=== PATIENT | female | born 1975 | race American Indian/Alaskan Native ===

== ENCOUNTER 2024-10-08 11:44 | Emergency (ER) | payer OTHER, SELFPAY ==
--- NOTE | 2024-10-08 12:33 | ED.GENMED ---
History of Present Illness
<Ranjana Salcedo, GEOSPATIAL TECHNOLOGIST - Last Filed: 10/09/24 14:46>
General
Chief Complaint: Abdominal Pain
Source: patient
Exam Limitations: none
Time Seen by Provider: 10/08/24 12:33
Nursing documentation reviewed up to this point in time: agreed with
History of Present Illness
History of Present Illness:
49-year-old female with history of thyroidism, depression, chronic back pain, IBS, chronic intermittent episodes of abdominal bloating, pain and constipation most likely related to IBS�see, usually does well with MiraLAX and probiotics as needed.
He was ruled out for celiac disease and also saw a painter tumbling barrel and was ruled out for connective tissue disease.
Presents today for 4 days of intermittent pain under left breast. Went to UC, EKG normal.
Also 3 had abd. film showing increased stool. Went home and took Miralax, Senekot, Mg++ and had good BM last night and this a.m.
This a.m. went back to urgent care for bloating and abd pain and sent here for eval.
. Denies fever or chills. Denies nausea or vomiting. She states she is urinating more than usual throughout the night.
Past History
<Ranjana Salcedo, GEOSPATIAL TECHNOLOGIST - Last Filed: 10/09/24 14:46>
Past History
ED Past Medical History: Hypothyroidism, Psychiatric (Depression), Other and Other
ED Past Surgical History: None
Social History
Tobacco: Non-smoker
Alcohol: None
Personal: Single
Living: alone
Employment: Employed (teacher at [employer])
Review of Systems
<Ranjana Salcedo, GEOSPATIAL TECHNOLOGIST - Last Filed: 10/09/24 14:46>
Review of Systems
Allergies reviewed?: Yes
All Other Systems: ROS reviewed and negative except as documented in HPI and ROS
Constitutional: Denies fever
Respiratory: Denies trouble breathing
Cardiac: Reports chest pain (pain rib under left breast)
ABD/GI: Reports abdominal pain and constipated; Denies nausea, vomiting, diarrhea, bloody stools or black stools
: Reports frequency; Denies dysuria, difficulty voiding or urgency
Musculoskeletal: Reports no symptoms
Skin: Reports no symptoms
Neurological: Reports no symptoms
Phy Exam
<Ranjana Salcedo, GEOSPATIAL TECHNOLOGIST - Last Filed: 10/09/24 14:46>
Physical Exam
Physical Exam:
GENERAL: No acute distress. A&Ox3.
CONSTITUTIONAL: Afebrile.
EYES: clear, conjunctivae normal
ENMT: moist mucus membranes, Pharynx nl
RESPIRATORY: Regular respirations, nonlabored, lungs clear.
CARDIOVASCULAR: Regular rate and rhythm, no murmurs, no rubs.
GI: Soft, nondistended, tender to palpate left abdomen. Normal BS
MUSCULOSKELETAL: Point tender intercostal space between ribs 4 and 5 anteriorly. One finger pressing on this area immediately reproduces the pain. Moves with ease. Well perfused.
SKIN: Warm, dry, normal
PSYCH: Normal mood and affect. Well kept, interactive and appropriate
NEUROLOGIC: Awake, alert and oriented. No focal neurological deficits
Course
<Ranjana Salcedo, GEOSPATIAL TECHNOLOGIST - Last Filed: 10/09/24 14:46>
Orders/Labs/Results
Orders:
Orders
10/08/24 11:57
EKG [Electrocardiogram (*1)] Urgent
Reason for Study: Abdominal Pain
EKG- Treatment ONCE
10/08/24 12:50
CT Abd/pel W Iv And Oral Contr Urgent
Comment:
Reason For Exam: left side abd pain
Iohexol [Omnipaque] See Protocol PO NOW STA
CR Chest - 2 Views Urgent
Comment:
Reason For Exam: left anterior mid rib pain
10/08/24 13:08
Complete Blood Count/With Diff Urgent
Comprehensive Metabolic Panel Urgent
HCG, Serum Qualitative Screen Urgent
Comment: ADD ON
Urinalysis Reflex To Culture Urgent
Date Specimen was Collected: 10/08/24
Time Specimen was Collected: 13:01
Urine Microscopic Reflex Cult Urgent
Urine Culture Urgent
JOHN Source: U
Specimen Description:
Date Specimen was Collected: 10/08/24
Time Specimen was Collected: 13:01
10/08/24 13:55
Add On- LAB Urgent
Comments:: tube in lab
Tests Added?: serum HCG quantitative
Test Result ONCE
10/08/24 15:23
Add On- LAB Urgent
Tests Added?: Urine culture
Abnormal Lab Results
10/08/24
13:08
RBC 3.90 L 10^6/uL
(4.20-5.40)
Hct 35.8 L %
(37.0-47.0)
MCH 32.6 H pg
(27.0-31.0)
Absolute Monos (auto) 0.7 H 10^3/uL
(0.1-0.6)
Sodium 134 L mmol/L
(135-145)
Leukocyte Esterase Rfl 1+ A
(Negative)
Urine WBC (Reflex) 11-15 A /HPF
(0-5)
Urine Bacteria (Reflex) Few A
(Negative)
10/08/24 13:08
10/08/24 13:08
Vital Signs
Initial and Last Documented VS:
Initial Vital Signs
Temp Pulse Resp Pulse Ox
97.6 F 65 18 100
10/08/24 11:51 10/08/24 11:51 10/08/24 11:51 10/08/24 11:51
Last Documented Vital Signs
Temp Pulse Resp BP Pulse Ox
97.6 F 60 14 134/76 100
10/08/24 11:51 10/08/24 17:16 10/08/24 17:16 10/08/24 17:16 10/08/24 17:16
<Sharan Carlson PA-C - Last Filed: 10/08/24 17:35>
Orders/Labs/Results
Orders:
Orders
10/08/24 11:57
EKG [Electrocardiogram (*1)] Urgent
Reason for Study: Abdominal Pain
EKG- Treatment ONCE
10/08/24 12:50
CT Abd/pel W Iv And Oral Contr Urgent
Comment:
Reason For Exam: left side abd pain
Iohexol [Omnipaque] See Protocol PO NOW STA
CR Chest - 2 Views Urgent
Comment:
Reason For Exam: left anterior mid rib pain
10/08/24 13:08
Complete Blood Count/With Diff Urgent
Comprehensive Metabolic Panel Urgent
HCG, Serum Qualitative Screen Urgent
Comment: ADD ON
Urinalysis Reflex To Culture Urgent
Date Specimen was Collected: 10/08/24
Time Specimen was Collected: 13:01
Urine Microscopic Reflex Cult Urgent
Urine Culture Urgent
JOHN Source: U
Specimen Description:
Date Specimen was Collected: 10/08/24
Time Specimen was Collected: 13:01
10/08/24 13:55
Add On- LAB Urgent
Comments:: tube in lab
Tests Added?: serum HCG quantitative
Test Result ONCE
10/08/24 15:23
Add On- LAB Urgent
Tests Added?: Urine culture
Abnormal Lab Results
10/08/24
13:08
RBC 3.90 L 10^6/uL
(4.20-5.40)
Hct 35.8 L %
(37.0-47.0)
MCH 32.6 H pg
(27.0-31.0)
Absolute Monos (auto) 0.7 H 10^3/uL
(0.1-0.6)
Sodium 134 L mmol/L
(135-145)
Leukocyte Esterase Rfl 1+ A
(Negative)
Urine WBC (Reflex) 11-15 A /HPF
(0-5)
Urine Bacteria (Reflex) Few A
(Negative)
10/08/24 13:08
10/08/24 13:08
Vital Signs
Initial and Last Documented VS:
Initial Vital Signs
Temp Pulse Resp Pulse Ox
97.6 F 65 18 100
10/08/24 11:51 10/08/24 11:51 10/08/24 11:51 10/08/24 11:51
Last Documented Vital Signs
Temp Pulse Resp BP Pulse Ox
97.6 F 60 14 134/76 100
10/08/24 11:51 10/08/24 17:16 10/08/24 17:16 10/08/24 17:16 10/08/24 17:16
<Ranjana Salcedo, GEOSPATIAL TECHNOLOGIST - Last Filed: 10/09/24 14:46>
MDM/Problems Addressed
Differential Diagnosis Includes:
Constipation, diverticulitis, colitis, IBS
Intercostal rib sprain under left breast.
MDM/Problems Addressed:
49-year-old female with history of thyroidism, depression, chronic back pain, IBS, chronic intermittent episodes of abdominal bloating, pain and constipation most likely related to IBS�see, usually does well with MiraLAX and probiotics as needed.
He was ruled out for celiac disease and also saw a painter tumbling barrel and was ruled out for connective tissue disease.
Presents today for 4 days of intermittent pain under left breast. Went to , EKG normal.
Also 3 had abd. film showing increased stool. Went home and took Miralax, Senekot, Mg++ and had good BM last night and this a.m.
This a.m. went back to urgent care for bloating and abd pain and sent here for eval.
. Denies fever or chills. Denies nausea or vomiting. She states she is urinating more than usual throughout the night.
Afebrile, NAD
CBC with no clinically significant abnormality
CMP normal
Lipase
U/A: +1 leukocytes, 11-15 WBCs, greater than 30 squamous cells and few bacteria. No treatment indicated pending culture results.
<Sharan Carlson PA-C - Last Filed: 10/08/24 17:35>
*Critical Care Note
Total Time (30-74mins, 75-104mins- exclusive of procedures): Not Applicable
<Sharan Carlson PA-C - Last Filed: 10/08/24 17:35>
Update Note
Update Note:
Received care of patient upon signout. CT of abdomen shows mild inflammation of the rectum to suggest colitis. Patient does admit to using an enema yesterday and since then she has moved her bowels and is actually feeling better. White count is
normal no fever. She denies any blood in the stool. Do not suspect antibiotics will help at this time. Recommend continued hydration and bowel regimen. Stable for discharge
ED Attending Note
<Ranjana Salcedo GEOSPATIAL TECHNOLOGIST - Last Filed: 10/09/24 14:46>
-
Portions of this chart may have been created with voice recognition software.� Occasional wrong word or��sound alike� substitutions may have occurred due to the inherent limitations of voice recognition software.
Discharge Plan
Departure
Patient Disposition: Home (Routine Discharge)
Date of Disposition: 10/08/24
Time of Disposition: 17:34
Patient with high blood pressure during this ER visit?: No
Discharge Problem:
Abdominal pain
Instructions: Abdominal Pain
Prescriptions:
No Action
clindamycin HCl 300 MG capsule
300 mg PO TID Qty: 21 0RF
Referrals:
Lopez,Fabien Griffin, MD [Family Provider] -
Activity Restrictions/Additional Instructions:
Return here if needed. Continue your bowel regimen. Follow-up with your doctor otherwise
Interventions
Interventions:
*Risk Screen - Suicide Last Done: 10/08/24 11:51
*General Assessment Last Done: 10/08/24 11:51
*Neglect/Abuse Screening Last Done: 10/08/24 11:51
*ED- Fall Risk Assessment Last Done: 10/08/24 12:56
*ED COVID-19 Vaccine History Last Done: 10/08/24 11:51
*Nursing Disposition Last Done: 10/08/24 17:59
OP-Zxzdka-Yoxdwspdfx Assessment Last Done: 10/08/24 12:58
Discharge Date and Time
Discharge Date/Time: 10/08/24 17:59
Print Language: ITALIAN
--- NOTE | 2024-10-08 12:48 | EDRN ---
Lana KNIGHT in room w/ pt at this time.
[2024-10-08 12:55] VITALS: BMI 23.5
[2024-10-08 13:05] VITALS: BP 117/83
[2024-10-08] MEDS: OMNIPAQUE 50 ML PO (13:17)
[2024-10-08 13:26] LABS: % Basophils 0.3 % (0-2); % Eosinophils 0.3 % (0-6); % Immature Granulocytes 0.4 % (0-0.5); % Lymphocytes 27.7 % (20.5-51.1); % Monocytes 7.3 % (1.7-9.3); Absolute Lymphocytes 2.8 10^3/uL (1.2-3.4); Absolute Monocytes 0.7 10^3/uL (0.1-0.6); Absolute Neutrophils 6.4 10^3/uL (1.4-6.5); Hematocrit 35.8 % (37.0-47.0); Hemoglobin 12.7 g/dL (12.0-16.0); Mean Corp Hgb Conc. 35.5 g/dL (33.0-37.0); Mean Corpuscular Hgb 32.6 pg (27.0-31.0); Mean Corpuscular Volume 91.8 fL (81.0-99.0); Mean Platelet Volume 8.6 fL (7.4-10.4); Nucleated Red Blood Cells % 0 %; Platelet Count 373 10^3/uL (130-400); Red Cell Dist. Width 13.2 % (11.5-14.5)
[2024-10-08 13:32] LABS: ALT (SGPT) 21 U/L (0-35); AST (SGOT) 23 U/L (14-36); Albumin 4.5 g/dl (3.5-5.0); Alkaline Phosphatase 59 U/L (38-126); Blood Urea Nitrogen 9 mg/dl (7-17); Calcium 9.4 mg/dl (8.4-10.2); Carbon Dioxide 27 mmol/L (22-30); Chloride 100 mmol/L (98-107); Estimated Creatinine Clearance 86 ml/min; Glucose 72 mg/dl (70-99); Potassium 4.2 mmol/L (3.5-5.1); Sodium 134 mmol/L (135-145); Total Bilirubin 0.5 mg/dl (0.2-1.3); Total Protein 8.2 g/dl (6.3-8.2); Urine Albumin Negative (Neg - Trace); Urine Bilirubin Negative (Negative); Urine Character Clear (Clear); Urine Color Yellow; Urine Glucose Negative (Negative); Urine Ketone Negative (Negative); Urine Leukocyte 1+ (Negative); Urine Nitrite Negative (Negative); Urine Occult Blood Negative (Negative); Urine Specific Gravity 1.005 (<1.030); Urine Urobilinogen Negative (Neg - 1+); Urine pH 6.5 (5.0-9.0); eGFR > 60.00
[2024-10-08 14:00] VITALS: BP 98/76
[2024-10-08 14:07] LABS: Urine Squamous Cell >30 /LPF (Few)
[2024-10-08 14:09] LABS: Urine Red Blood Cell 0-2 /HPF (0-2)
[2024-10-08 14:10] LABS: Urine Bacteria Few (Negative)
[2024-10-08 14:40] LABS: HCG, Serum Qualitative Screen Negative
[2024-10-08 16:23] VITALS: BP 126/76
--- NOTE | 2024-10-08 16:24 | EDRN ---
Pt OOB to BR at this time.
[2024-10-08 17:16] VITALS: BP 134/76
== END 2024-10-08 17:59 | disposition home or self-care (01) ==
LOC: EMR 11:44
PROVIDERS: Registered Nurse; EMERGENCY PHYSICIAN Emergency Medicine; FAMILY PHYSICIAN Family Medicine
DX: R10.9 Unspecified abdominal pain (principal); K58.9 Irritable bowel syndrome, unspecified; E03.9 Hypothyroidism, unspecified
CPT/HCPCS: 99284; 71046; 74177; 80053; 81003; 81015; 84703; 85025; 87086; 93005; Q9967